=== PATIENT | female | born 1960 ===

== ENCOUNTER 2022-05-12 09:24 | Day surgery (SDC) | payer OTHER ==
[~2022-05-12 09:24] MED LIST: ASA81 MG PO; LIPITOR20 MG PO; MULTI-DAY1 TAB PO
== END 2022-05-12 14:20 | disposition home or self-care (01) ==
LOC: AMB-ENDOS 09:24 → ADM 14:00 → AMB-ENDOS 14:00
PROVIDERS: ATTEND Colon & Rectal Surgery
DX: A08.8 Other specified intestinal infections (principal); L40.2 Acrodermatitis continua; K62.5 Hemorrhage of anus and rectum; K57.30 Diverticulosis of large intestine without perforation or abscess without bleeding; Z20.822 Contact with and (suspected) exposure to COVID-19; Z86.010 Personal history of colon polyps